=== PATIENT | female | born 1960 | race Caucasian/White ===

== ENCOUNTER → 2017-10-31 | Outpatient (CLI) | payer OTHER | LOC: COL.PUL 10-27 13:00 | DX: J02.9 Acute pharyngitis, unspecified (principal); F17.200 Nicotine dependence, unspecified, uncomplicated ==

== ENCOUNTER → 2018-03-16 | Outpatient (CLI) | payer OTHER ==
[2018-03-16 16:27] LABS: BASO % 0.5 % (0.0-2.0); EOS # 0.1 (0.0-0.7); EOS % 1.9 % (0-4.0); GRAN % 64.6 % (42.2-75.2); HEMOGLOBIN 14.8 g/dl (12.5-16.0); LYMPH # 1.5 (1.2-3.4); LYMPH % 23.9 % (20.0-51.0); MEAN CELL VOLUME 92 fl (80.0-100.0); MEAN CORPUSCULAR HEMOGLOBIN 30 pg (27.0-31.0); MEAN CORPUSCULAR HGB CONC 33 g/dl (33.0-37.0); MEAN PLATELET VOLUME 9.9 fl (7.4-10.4); MONO # 0.5 (0.1-0.6); MONO % 8.5 % (1.7-9.3); PLATELET COUNT 320 K/mm3 (130-400); RED BLOOD COUNT 4.87 M/mm3 (4.10-5.30); REDCELL DISTRIBUTION WIDTH-CV 14.8 % (11.5-14.5)
[2018-03-16 16:45] LABS: BILIRUBIN,TOTAL 0.6 mg/dL (0.0-1.0); CALCIUM 9.6 mg/dL (8.4-10.2); CREATININE, serum 0.51 mg/dL (0.52-1.25); POTASSIUM 4.2 mmol/L (3.4-5.0)
[2018-03-16 16:51] LABS: CHOLESTEROL RISK RATIO 1.6
[2018-03-16 17:14] LABS: TSH w REFLEX 3.33 uIU/mL (0.465-4.680)
== END ==
LOC: COL.LAB 11:51
PROVIDERS: Family Medicine
DX: Z13.220 Encounter for screening for lipoid disorders (principal); Z13.29 Encounter for screening for other suspected endocrine disorder; F32.9 Major depressive disorder, single episode, unspecified

== ENCOUNTER → 2018-08-17 | Outpatient (CLI) | payer OTHER | LOC: ZCOL.LAB 16:28 | DX: B49 Unspecified mycosis (principal) ==

== ENCOUNTER → 2019-05-22 | Outpatient (CLI) | payer OTHER | LOC: MC.RAD 10:48 | DX: Z12.31 Encounter for screening mammogram for malignant neoplasm of breast (principal) ==

== ENCOUNTER → 2021-07-24 | Outpatient (CLI) | payer OTHER | LOC: COL.RAD 10:08 | DX: S22.32XA Fracture of one rib, left side, initial encounter for closed fracture (principal); J90 Pleural effusion, not elsewhere classified; J98.11 Atelectasis ==

== ENCOUNTER → 2021-09-14 | Outpatient (CLI) | payer OTHER | LOC: MC.RAD 11:45 | DX: Z12.31 Encounter for screening mammogram for malignant neoplasm of breast (principal); M81.0 Age-related osteoporosis without current pathological fracture ==

== ENCOUNTER 2024-05-09 11:15 | Outpatient (RCR) | payer OTHER | END 2024-05-16 | disposition home or self-care (01) | LOC: WSPT | DX: M25.511 Pain in right shoulder (principal) ==

== ENCOUNTER 2024-05-28 11:15 | Outpatient (RCR) | payer OTHER | END 2024-06-16 | disposition home or self-care (01) | LOC: WSPT | DX: M25.511 Pain in right shoulder (principal) ==